=== PATIENT | male | born 1970 | race Caucasian/White ===

== ENCOUNTER 2023-06-25 12:41 | Emergency (ER) | payer OTHER ==
[~2023-06-25] VITALS: Ht 177.8 cm; Wt 102.3 kg
[~2023-06-25 12:41] MED LIST: CEFT2VIA60 IV; LEVO750T68 PO; LISI-893 PO
[2023-06-25 12:46] VITALS: TEMP 98.7
[2023-06-25] MEDS ORDERED: METF-446 PO (12:49)
[2023-06-25] MEDS ORDERED: ATOR20TA65 PO (12:49)
[2023-06-25 14:20] LABS: BASOPHILS % (AUTO) 0.4 % (0.0-2.0); EOSINOPHILS % (AUTO) 1.2 % (1.0-6.0); HEMATOCRIT 44.5 % (41-53); LYMPHOCYTES % (AUTO) 31.1 % (22.0-44.0); MEAN CORPUSCULAR HEMOGLOBIN 31.2 pg (26.0-34.0); MEAN CORPUSCULAR HGB CONC 33.8 G/dL (31.0-37.0); MEAN CORPUSCULAR VOLUME 92 fL (80-100); MONOCYTES # (AUTO) 0.6 K/uL (0.1-1.0); MONOCYTES % (AUTO) 6.5 % (2.0-9.0); NEUTROPHILS # (AUTO) 5.8 K/uL (1.8-7.7); NEUTROPHILS % (AUTO) 60.8 % (40.0-70.0); PLATELET COUNT (AUTO) 315 K/uL (150-450); RED BLOOD CELL COUNT(AUTO) 4.83 MIL/uL (4.50-5.90); RED CELL DISTRIBUTION WIDTH 13.9 % (11.5-14.5); WHITE BLOOD COUNT (AUTO) 9.5 K/uL (4.5-11.0)
[2023-06-25] MEDS: CEPHALEXIN MONOHYDRATE 500 MG CAPSULE PO ONE (14:27)
[2023-06-25] MEDS: SULFAMETHOX/TRIMETH DS 800-160 MG/TABLET PO ONE (14:27)
[2023-06-25 14:31] LABS: ANION GAP 9 mmol/L (8-16); CALCIUM, TOTAL 8.7 mg/dL (8.8-10.5); CARBON DIOXIDE 25 mmol/L (22-29); CHLORIDE 97 mmol/L (98-107); CREATININE 0.95 mg/dL (0.60-1.30); GLOMERULAR FILTR. RATE CALC > 60 mL/min (>60); GLUCOSE,RANDOM 273 mg/dL (70-110); POTASSIUM 4.2 mmol/L (3.5-5.1); SODIUM SERUM 131 mmol/L (136-145); UREA NITROGEN, BLOOD 18 mg/dL (7-18)
[2023-06-25 14:37] LABS: ALANINE AMINOTRANSFERASE 31 U/L (12-78); ALBUMIN 3.1 g/dL (3.4-5.0); ALKALINE PHOSPHATASE 143 U/L (46-116); ASPARTATE AMINOTRANSFERASE 20 U/L (15-37); BILIRUBIN,TOTAL 0.4 mg/dL (0.1-1.0); TOTAL PROTEIN, SERUM 7.7 g/dL (6.4-8.2)
[2023-06-25 14:55] VITALS: BP 147/92; PULSE 94; RESP 16
[2023-06-25] MEDS ORDERED: SULF-261 PO (14:56)
[2023-06-25] MEDS ORDERED: CEPH-558 PO (14:56)
== END 2023-06-25 15:07 | disposition home or self-care (01) ==
LOC: EMS 12:43
DX: L03.115 Cellulitis of right lower limb (principal); F17.210 Nicotine dependence, cigarettes, uncomplicated; F12.90 Cannabis use, unspecified, uncomplicated
CPT/HCPCS: 80053; 85025; 99283

== ENCOUNTER 2025-01-26 23:46 | Inpatient (IN) | payer OTHER ==
[~2025-01-26] VITALS: Ht 177.8 cm; Wt 104.5 kg
[~2025-01-26 23:46] MED LIST changes: -CEFT2VIA60 IV; +LEVO-72 PO; -LEVO750T68 PO; -LISI-893 PO
[2025-01-27 00:19] LABS: PLATELET COUNT (AUTO) 227 K/uL (150-450); RED BLOOD CELL COUNT(AUTO) 5.05 MIL/uL (4.50-5.90); RED CELL DISTRIBUTION WIDTH 14.4 % (11.5-14.5); WHITE BLOOD COUNT (AUTO) 7.8 K/uL (4.5-11.0)
[2025-01-27 00:23] LABS: CALCIUM, TOTAL 8.3 mg/dL (8.8-10.5); CREATININE 1.06 mg/dL (0.60-1.30); GLOMERULAR FILTR. RATE CALC > 60 mL/min (>60); SODIUM SERUM 135 mmol/L (136-145); UREA NITROGEN, BLOOD 15 mg/dL (7-18)
[2025-01-27 00:27] LABS: ASPARTATE AMINOTRANSFERASE 21 U/L (15-37); CHOL/HDL RATIO 9.2 (4.2-7.3); TOTAL PROTEIN, SERUM 7.2 g/dL (6.4-8.2)
[2025-01-27 00:30] LABS: TROPONIN I-HIGH SENSITIVITY 58 ng/L (<76)
[2025-01-27 00:36] LABS: GLUCOSE,RANDOM 474 mg/dL (70-110)
[2025-01-27] MEDS ORDERED: INSULIN REGULAR, HUMAN 100 UNITS/ML IVP ONE (00:45)
[2025-01-27] MEDS: ASPIRIN 325 MG TABLET PO ONE (02:11)
[2025-01-27] MEDS: INSULIN REGULAR, HUMAN 100 UNITS/ML IVP ONE (02:11)
[2025-01-27] MEDS: CLOPIDOGREL BISULFATE 75 MG TABLET PO ONE (02:11)
[2025-01-27] MEDS ORDERED: DEXTROSE 50%-WATER 25 GM/50 ML SYRINGE IVP PRN (05:00)
[2025-01-27] MEDS ORDERED: ACETAMINOPHEN 325 MG TABLET PO PRN (05:00)
[2025-01-27] MEDS ORDERED: LABETALOL HCL 5 MG/ML 20 ML VIAL IVP PRN (05:00)
[2025-01-27] MEDS ORDERED: ONDANSETRON HCL 4 MG/2 ML VIAL IVP PRN (05:00)
[2025-01-27] MEDS: RINGERS SOLUTION,LACTATED 1,000 ML IV ONE (05:37)
[2025-01-27] MEDS: INSULIN GLARGINE,HUM.REC.ANLOG 100 UNITS/ML SQ SCH ×2 (06:01→18:29)
[2025-01-27 06:29] LABS: TROPONIN I-HIGH SENSITIVITY 59 ng/L (<76)
[2025-01-27] MEDS: HEPARIN SODIUM,PORCINE 5,000 UNITS/ML VIAL SQ SCH (10:08)
[2025-01-27] MEDS: CLOPIDOGREL BISULFATE 75 MG TABLET PO SCH (10:09)
[2025-01-27] MEDS: DOCUSATE SODIUM 100 MG CAPSULE PO SCH (10:09)
[2025-01-27] MEDS: ASPIRIN 81 MG CHEWABLE TABLET PO SCH (10:09)
[2025-01-27 10:30] VITALS: BP 156/89; PULSE 75; RESP 18; TEMP 97.5; O2SAT 98
[2025-01-27 12:16] LABS: GLUCOMETER DEV NAME(LOC) 5N.1D; GLUCOSE,POINT OF CARE 369 MG/DL (70-110)
[2025-01-27] MEDS: INSULIN LISPRO 100 UNITS/ML SQ PRN (12:34)
[2025-01-27 12:39] LABS: TROPONIN I-HIGH SENSITIVITY 56 ng/L (<76)
[2025-01-27 16:32] VITALS: BP 141/99; PULSE 90; RESP 16; TEMP 97.3; O2SAT 99
[2025-01-27 17:50] LABS: GLUCOMETER DEV NAME(LOC) 5S.2E; GLUCOSE,POINT OF CARE 276 MG/DL (70-110)
[2025-01-27 19:25] VITALS: BP 137/93; PULSE 94; RESP 18; TEMP 97.7; O2SAT 98
[2025-01-27] MEDS: ATORVASTATIN CALCIUM 40 MG TABLET PO SCH (20:52)
[2025-01-27 23:04] VITALS: BP 141/97; PULSE 93; RESP 18; TEMP 97.7; O2SAT 98
[2025-01-28 03:22] VITALS: BP 120/63; PULSE 84; RESP 18; TEMP 98.1; O2SAT 96
[2025-01-28 07:07] LABS: PLATELET COUNT (AUTO) 219 K/uL (150-450); RED BLOOD CELL COUNT(AUTO) 4.96 MIL/uL (4.50-5.90); RED CELL DISTRIBUTION WIDTH 14.3 % (11.5-14.5); WHITE BLOOD COUNT (AUTO) 7.6 K/uL (4.5-11.0)
[2025-01-28 07:24] LABS: CALCIUM, TOTAL 8.1 mg/dL (8.8-10.5); CREATININE 0.75 mg/dL (0.60-1.30); GLOMERULAR FILTR. RATE CALC > 60 mL/min (>60); GLUCOSE,RANDOM 266 mg/dL (70-110); SODIUM SERUM 135 mmol/L (136-145); UREA NITROGEN, BLOOD 10 mg/dL (7-18)
[2025-01-28 08:00] VITALS: BP 134/82; PULSE 78; RESP 18; TEMP 97.8; O2SAT 97
[2025-01-28 08:26] LABS: GLUCOMETER DEV NAME(LOC) 5S.1E; GLUCOSE,POINT OF CARE 237 MG/DL (70-110)
[2025-01-28 08:26] LABS: GLUCOMETER DEV NAME(LOC) 5S.1E; GLUCOSE,POINT OF CARE 254 MG/DL (70-110)
[2025-01-28 08:26] LABS: GLUCOMETER DEV NAME(LOC) 5S.1E; GLUCOSE,POINT OF CARE 267 MG/DL (70-110)
[2025-01-28 10:39] LABS: APPEARANCE,URINE CLEAR (CLEAR); GLUCOSE, URINE (UA) >=1000 mg/dL (NEGATIVE); LEUKOCYTE ESTERASE ,URINE NEGATIVE (NEGATIVE); NITRATE,URINE NEGATIVE (NEGATIVE); OCCULT BLOOD,URINE NEGATIVE (NEGATIVE); PH,URINE DRUG SCREEN 6.0 (5.0-8.0); SPECIFIC GRAVITIY, URINE 1.026 (1.003-1.030)
[2025-01-28 10:46] LABS: SQUAMOUS EPITHELIAL CELL,UR Few /LPF (None Seen)
[2025-01-28 11:30] LABS: ALCOHOL, URINE DRUG SCREEN NEGATIVE (NEGATIVE); AMPHET/METH SCREEN,URINE POSITIVE (NEGATIVE); BARBITURATE SCREEN, URINE NEGATIVE (NEGATIVE); CANNABINOID SCREEN,URINE POSITIVE (NEGATIVE); COCAINE SCREEN,URINE NEGATIVE (NEGATIVE); METHADONE SCREEN, URINE NEGATIVE (NEGATIVE)
[2025-01-28 14:10] VITALS: BP 141/93; PULSE 78; RESP 18; TEMP 97.7; O2SAT 96
[2025-01-28] MEDS: NIACIN 500 MG PO SCH (14:15)
[2025-01-28 16:01] VITALS: BP 129/90; PULSE 98; RESP 18; TEMP 97.9; O2SAT 98
[2025-01-28 18:20] LABS: GLUCOMETER DEV NAME(LOC) 5S.2E; GLUCOSE,POINT OF CARE 260 MG/DL (70-110)
[2025-01-28 18:20] LABS: GLUCOMETER DEV NAME(LOC) 5S.2E; GLUCOSE,POINT OF CARE 318 MG/DL (70-110)
[2025-01-28 20:43] VITALS: BP 128/74; PULSE 91; RESP 18; TEMP 98.1; O2SAT 98
[2025-01-28] MEDS ORDERED: ATORVASTATIN CALCIUM 40 MG TABLET PO SCH (21:00)
[2025-01-28] MEDS ORDERED: INSULIN GLARGINE,HUM.REC.ANLOG 100 UNITS/ML SQ SCH (21:00)
== END 2025-01-28 21:00 | disposition left against medical advice (07) | DRG 45 ==
LOC: EMS 23:46 → EDH 01-27 04:52 → 5N 01-27 09:55
PROVIDERS: ADMIT Internal Medicine; ATTEND Internal Medicine
DX: I63.511 Cerebral infarction due to unspecified occlusion or stenosis of right middle cerebral artery (principal); E86.0 Dehydration; E11.65 Type 2 diabetes mellitus with hyperglycemia; R65.10 Systemic inflammatory response syndrome (SIRS) of non-infectious origin without acute organ dysfunction; E78.1 Pure hyperglyceridemia; I10 Essential (primary) hypertension; R47.81 Slurred speech; R29.703 NIHSS score 3; Z53.29 Procedure and treatment not carried out because of patient's decision for other reasons; R00.0 Tachycardia, unspecified; R29.810 Facial weakness; Z87.891 Personal history of nicotine dependence; Z88.0 Allergy status to penicillin; Z79.899 Other long term (current) drug therapy
CPT/HCPCS: 70496; 70498; 70551; 71045; 80048; 80053; 80061; 80307; 81001; 82948; 82962; 83036; 83690; 83735; 84478; 84484; 85025; 85610; 85730; 86850; 86900; 86901; 92610; 93005; 93306; 97162; 97166; 97535; 99291; J1644; J1815; J3490; J7050; J7120; 36415-L1; 36415-TC; 70450; 70450-TC